=== PATIENT | female | born 1990 | race Caucasian/White ===

== ENCOUNTER 2020-01-14 04:19 | Outpatient (CLI) | payer OTHER ==
--- NOTE | 2020-01-14 04:10 | NUR ---
G8L1 at 35 weeks and 6 days arrives to unit with complaint of contractions every 5 minutes. Pt receives care from [place] but chose to come here because [place]. Pt reports feeling good movement. Denies LOF. Does report some spotting. Pt has a history of PROM and had a vaginal delivery at 32 weeks. Has had betamethasone this due to history of delivery and early advanced dilation. Pt reports SVE 4-5/80 a few days ago at [place]. Clean gown on. Pt oriented to room, call light within reach, bed in low and locked position. US and toco explained and applied. SVE 4-5/80/-3 membranes intact, vertex position. Vital signs obtained. Admission assessment started.
[2020-01-14 04:30] VITALS: BP 131/61; PULSE 100; TEMP 97.8
[2020-01-14] MEDS ORDERED: SYNTHROID 0.10.15 MG PO (04:41)
[2020-01-14] MEDS ORDERED: PRENATAL (04:42)
[2020-01-14] MEDS ORDERED: PROVENTIL0.09 MG/A1 IH (04:44)
--- NOTE | 2020-01-14 05:00 | NUR ---
18 G IV started in right hand. Lactated Ringers infusing to gravity.
[2020-01-14 06:30] VITALS: BP 124/77; PULSE 86; TEMP 98
[2020-01-14 07:00] VITALS: BP 120/80; PULSE 88
--- NOTE | 2020-01-14 07:01 | NUR ---
Explained to patient that cervix is unchanged and per Dr. Hennessy will not induce labor at this time. Patient given the option to stay 2 more hours and have cervix rechecked or go home. Patient tearful and states she is umcomfortable and wants to sleep. Patient decides to go home. Labor precautions reviewed with patient. Patient verbalizes understanding.
== END 2020-01-14 07:15 | disposition home or self-care (01) ==
LOC: LDRO 04:19
DX: O62.9 Abnormality of forces of labor, unspecified (principal); Z3A.35 35 weeks gestation of pregnancy; Z87.51 Personal history of pre-term labor
CPT/HCPCS: J7120